=== PATIENT | female | born 1995 | race Caucasian/White ===

== ENCOUNTER 2020-12-27 15:18 | Emergency (ER) | payer OTHER, SELFPAY ==
--- NOTE | ~2020-12-27 | XR_ITS ---
EXAMINATION: XR foot RT min 3V DATE: 12/27/2020 15:40 INDICATION: Right foot pain TECHNIQUE: Dorsoplantar, lateral, and 2 oblique views of the right foot were obtained. COMPARISON: 10/25/2014 FINDINGS: There is a healed fracture of the fifth metatarsal. No acute fracture, dislocation, or subl uxation is identified. The joint spaces are normal. The soft tissues are unremarkable. IMPRESSION: 1. No acute osseous abnormality. Reviewed, dictated and finalized at location A.
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
[2020-12-27 15:41] VITALS: BP 99/70; PULSE 72; RESP 16; TEMP 36.2; O2SAT 100
== END 2020-12-27 16:03 | disposition home or self-care (01) ==
PROVIDERS: Emergency Provider Registered Nurse; PCP Internal Medicine
DX: M79.671 Pain in right foot (principal)
CPT/HCPCS: 73630; 99213; G0463

== ENCOUNTER 2024-03-02 10:09 | Emergency (ER) | payer OTHER, SELFPAY ==
--- NOTE | ~2024-03-02 | CT_ITS ---
CT brain wo con Ordering provider: Raffaele Callahan MD History: 28 years Female with . head injury . Comparison: None. Technique: CT of the head without contrast. Radiation reduction technique utilized.The dose-length product was 908 mGy-cm. FINDINGS: BRAIN PARENCHYMA AND CSF SPACES: No midline shift, mass effect or hemorrhage. The brain parenchyma a nd CSF spaces are otherwise normal. VISUALIZED PARANASAL SINUSES: Well aerated. MASTOIDS: Well aerated. BONES: The bones appear intact. SOFT TISSUES: Visualized nasopharynx is normal. Superficial soft tissues are normal. IMPRESSION: No acute intracranial findings. Reviewed, dictated and finalized at location A. N FACTORS ERGONOMIST
[2024-03-02 10:28] VITALS: BP 117/58; PULSE 94; RESP 18; TEMP 36.8; O2SAT 98
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
[2024-03-02 13:07] VITALS: BP 115/76; PULSE 70; RESP 18; O2SAT 99
== END 2024-03-02 13:07 ==
PROVIDERS: Emergency Provider Emergency Medicine; PCP Internal Medicine
DX: S09.90XA Unspecified injury of head, initial encounter (principal); G80.9 Cerebral palsy, unspecified; F31.9 Bipolar disorder, unspecified; Z79.899 Other long term (current) drug therapy; W22.8XXA Striking against or struck by other objects, initial encounter
CPT/HCPCS: 70450; 99284

== ENCOUNTER 2024-09-29 11:24 | Emergency (ER) | payer OTHER, SELFPAY ==
--- NOTE | 2024-09-29 11:25 | ED.EAR ---
HPI - Ear Problem General Chief complaint: Ear Stated complaint: Ear Pain Source: patient and RN notes reviewed Mode of arrival: ambulatory Limitations: no limitations History of Present Illness HPI Narrative: Patient is a 29-year-old female who presents to the [facility] with mother with complaints of right ear pain. Mother states that patient's ears frequently get clogged with wax. She states that she noticed that there was a large amount of wax to bilateral ears. Mother denies noting any ear drainage. Denies recent fevers. Related Data Home Medications ?Medication ?Instructions ?Recorded ?Confirmed ?Last Taken ?Type aripiprazole 10 mg tablet 10 mg PO DAILY 06/16/19 07/23/24 Unknown History acetaminophen 325 mg capsule 325 mg PO Q6H PRN 06/16/23 07/23/24 Unknown History divalproex 500 mg tablet,delayed 500 mg PO Q12H 06/16/23 07/23/24 Unknown History release fluoxetine 40 mg capsule 40 mg PO DAILY 06/16/23 07/23/24 Unknown History ibuprofen 200 mg capsule 600 mg PO Q6H PRN 06/16/23 07/23/24 Unknown History magnesium hydroxide 400 mg/5 mL 5 ml PO DAILY PRN 06/16/23 07/23/24 Unknown History oral suspension (Milk of Magnesia) nystatin 100,000 unit/gram topical 1 applic topical BID 06/16/23 07/23/24 Unknown History cream trazodone 50 mg tablet 50 mg PO QHS 06/16/23 07/23/24 Unknown History aripiprazole 2 mg tablet (Abilify) 5 mg PO DAILY 05/28/24 07/23/24 Unknown History Allergies Allergy/AdvReac Type Severity Reaction Status Date / Time No Known Allergies Allergy Verified 09/29/24 11:49 Review of Systems Review of Systems: CONSTITUTIONAL: Denies fever, chills, or sweats. EYES: Denies visual changes, redness, or discharge. ENT: Reports otalgia CARDIOVASCULAR: Denies chest pain, palpitations, or edema. RESPIRATORY: Denies cough or dyspnea. GASTROINTESTINAL: Denies abdominal pain, nausea, vomiting, or diarrhea. GENITOURINARY: Denies dysuria or hematuria. SKIN: Denies rash or itching. MUSCULOSKELETAL: Denies back pain, joint pain, or myalgia. NEUROLOGIC: Denies headache, numbness, or weakness. Pertinent positives per HPI. PMFSH Past Medical History Medical History History of bipolar disorder Cerebral palsy Surgical History Surgical History Lower extremity surgery planned BL leg 07/2015 Family History Family History Mother Hypothyroidism Grandparent Bipolar disorder Schizophrenia Hypothyroidism Diabetes mellitus Social History Social History Smoking status: Never smoker Alcohol intake: never Lack of Transportation: No Lack of Food: Never True Current Housing: I Have Housing Concerned About Future Housing: No Difficulty Paying Gas/Electric Bills: No Difficulty Paying for Meds: No Currently Unemployed: No Education: High School Diploma/GED Living arrangements: custodial Occupation/Education: other Gender identity (if verbalized by the patient): Female Comments At the time of my signature, I reviewed and agree with the nursing past medical, surgical, social, and family history. There is no relevant family history pertinent to the patient complaint. Exam Narrative: GENERAL: This is a well-nourished, well-developed patient, in no apparent distress. HEAD: normocephalic, atraumatic. EYES: Sclera clear/white. Vision is grossly intact. EARS: External ears normal. Bilateral ears with cerumen impaction. After irrigation, bilateral TMs erythematous and bulging. NOSE: External nose normal with no obvious nasal discharge, nares without redness, no rhinorrhea. THROAT: Mucous membranes moist, posterior pharynx clear. NECK: Neck supple, non-tender without lymphadenopathy, masses or thyromegaly. CARDIOVASCULAR: Regular rate and rhythm without murmurs, gallops, or rubs. RESPIRATORY: Clear to auscultation. Breath sounds equal bilaterally. No wheezes, rales, or rhonchi. GASTROINTESTINAL: Abdomen soft, non-tender, nondistended. Bowel sounds are active. No hepato-splenomegaly, or palpable masses. No guarding. SKIN: warm, intact with no suspicious lesions or rash, good texture and turgor. NEURO: awake, alert. There were no obvious focal neurologic abnormalities. Course Course Level of Care: Express Care Visit Vital Signs Vital signs: Vital Signs Temperature 97.6 F 09/29/24 11:28 Pulse Rate 88 09/29/24 11:28 Respiratory Rate 16 09/29/24 11:28 Blood Pressure 112/78 09/29/24 11:28 Pulse Oximetry 98 09/29/24 11:28 Oxygen Delivery Room Air 09/29/24 11:28 Temperature 97.6 F 09/29/24 11:28 Pulse Rate 88 09/29/24 11:28 Respiratory Rate 16 09/29/24 11:28 Blood Pressure 112/78 09/29/24 11:28 Pulse Oximetry 98 09/29/24 11:28 Oxygen Delivery Room Air 09/29/24 11:28 Reviewed Procedures Ear Wax Removal Both Ears: Ear Wax Removal Date: 09/29/24 Ear Wax Removal Time: 11:45 Results: Re-examined: cerumen removed completely TM Examination: TM(s) erythematous Ear Canal Exam: atraumatic Patient Tolerated Procedure: well Complications: no problems Technique: ear canal irrigated and ear canal curetted Medical Decision Making MDM Narrative Medical decision making narrative: Take antibiotics as directed. May given ibuprofen and/or Tylenol as needed for pain and/or fever. Follow up with primary care provider in 7-10 days to have ear rechecked. -Ear drops as directed for 7-10 days until the pain and swelling are gone. -When administer drug into the affected ear; make sure to ly down with the affected ear facing upward, message the ear canal to help the drops reach the medial end of the canal, then remain in that position for at least 5 mintues. -Avoid using cotton tipped applicator for ears cleaning -Avoid exposing swimming or exposing the affected ear to water during the treatment period Take or alternate tylenol or ibuprofen every 4 - 6 hours if needed for pain. Follow up with primary care provider if condition is not improving in 7 days or sooner if there is new concern. Dual therapy with oral antibiotics and ear drops prescribed. Patient with significant otitis media. Since we had to irrigate can now due to cerumen impaction, we will also treat with ear drops. Differential Diagnosis Differential Diagnosis: otitis media, otitis externa, cerumen impaction Vital Signs Vital Signs: Vital Signs Temperature 97.6 F 09/29/24 11:28 Pulse Rate 88 09/29/24 11:28 Respiratory Rate 16 09/29/24 11:28 Blood Pressure 112/78 09/29/24 11:28 Pulse Oximetry 98 09/29/24 11:28 Oxygen Delivery Room Air 09/29/24 11:28 Temperature 97.6 F 09/29/24 11:28 Pulse Rate 88 09/29/24 11:28 Respiratory Rate 16 09/29/24 11:28 Blood Pressure 112/78 09/29/24 11:28 Pulse Oximetry 98 09/29/24 11:28 Oxygen Delivery Room Air 09/29/24 11:28 Critical Care Time Critical Care Time Critical Care Time: No Discharge Plan Discharge Clinical Impression: Bilateral acute otitis media, Bilateral impacted cerumen Patient Disposition: Home Condition: Stable Instructions: Antibiotic Form, Ear Infection (ED) Additional Instructions: Take antibiotics as directed. May given ibuprofen and/or Tylenol as needed for pain and/or fever. Follow up with primary care provider in 7-10 days to have ear rechecked. -Ear drops as directed for 7-10 days until the pain and swelling are gone. -When administer drug into the affected ear; make sure to ly down with the affected ear facing upward, message the ear canal to help the drops reach the medial end of the canal, then remain in that position for at least 5 mintues. -Avoid using cotton tipped applicator for ears cleaning -Avoid exposing swimming or exposing the affected ear to water during the treatment period Take or alternate tylenol or ibuprofen every 4 - 6 hours if needed for pain. Follow up with primary care provider if condition is not improving in 7 days or sooner if there is new concern. Patient Language: Icelandic Prescriptions: New amoxicillin-pot clavulanate 875-125 mg tablet 1 tablet PO Q12H 10 Days Qty: 20 0RF ofloxacin 0.3 % drops 10 drp EACH EAR DAILY 7 Days Qty: 10 0RF No Action aripiprazole 10 mg tablet 10 mg PO DAILY aripiprazole [Abilify] 2 mg tablet 5 mg PO DAILY Rx Instructions: TAKE AT NOON divalproex 500 mg tablet,delayed release (DR/EC) 500 mg PO Q12H fluoxetine 40 mg capsule 40 mg PO DAILY nystatin 100,000 unit/gram cream 1 applic topical BID trazodone 50 mg tablet 50 mg PO QHS acetaminophen 325 mg capsule 325 mg PO Q6H PRN ibuprofen 200 mg capsule 600 mg PO Q6H PRN magnesium hydroxide [Milk of Magnesia] 400 mg/5 mL suspension 5 ml PO DAILY PRN Follow-up/Referrals: UNKNOWN,DOCTOR [Non-Staff] -
[2024-09-29 11:28] VITALS: BP 112/78; PULSE 88; RESP 16; TEMP 36.4; O2SAT 98
== END 2024-09-29 11:57 | disposition home or self-care (01) ==
PROVIDERS: Emergency Provider Nurse Practitioner
DX: H66.93 Otitis media, unspecified, bilateral (principal); H61.23 Impacted cerumen, bilateral; G80.9 Cerebral palsy, unspecified; F31.9 Bipolar disorder, unspecified
CPT/HCPCS: 69210; 99213; A9270; G0463

== ENCOUNTER 2024-11-24 12:40 | Outpatient (CLI) | payer OTHER, SELFPAY ==
--- NOTE | ~2024-11-24 | US_ITS ---
US breast BI complete 11/24/2024 13:27 Indication: Bilateral breast pain Procedure: High-resolution complete bilateral breast ultrasound including all 4 quadrants in the suba reolar locations Comparison: No prior studies for comparison. Findings: At 12:00, 3 cm from the nipple there is a cluster of microcysts measuring up to 8 mm in agg regate. At 8:00, 6 cm from the nipple there is a 6 mm cyst. Left breast: At 3:00, 7 cm from the nipple there is an 8 mm cyst. No suspicious masses in either raf st to suggest malignancy. Impression: 1: No sonographic evidence for malignancy. Benign bilateral breast cysts. BI-RADS CATEGORY 2 - BENIGN FINDINGS Reviewed, dictated and finalized at location A. Impression: 1: No sonographic evidence for malignancy. Benign bilateral breast cysts. BI-RADS CATEGORY 2 - BENIGN FINDINGS
--- OUTSIDE RECORDS SUMMARY | 2024-11-24 12:42 | XMS_ITS | Clinical Summary ---
Author Organization [facility] Address [address] [facility] [place] [address] Phone Care Team Providers Care Filenet P8 Developer Name Role Phone Unavailable Primary Care Provider Unavailabl e Social History Tobacco Use Types Packs/Day Years Used Date Smoking Tobacco: Never Assessed Comments Unknown Sex and Gender Information Value Date Recorded Sex Assigned at Not on file Legal Sex Female 11:11 PM CDT Gender Identity Not on file Sexual Orientation Not on file Plan of Treatment Health Maintenance Due Date Last Done Comments Hepatitis C Virus (HCV) Screening 1995 Human Papillomavirus (HPV) Immunization (1 - 3-dose SCDM series) 2022 SARS-COV-2 Immunization ( - season) 2023 12/16/2020, 11/25/2020 Influenza Immunization (#1) 2024 04/02/2021 Respiratory Syncytial Virus (RSV) Immunization (Adult) (1 - 1-dose 75+ series) 2070 Hepatitis B Immunization Completed 996, 1995, 1995 DTaP/Tdap/Td Immunization Discontinued 2010, 11/25/2000, 07/22/1996, Additional history exists TdaP Immunization Completed 12/05/2010 Meningococcal Immunization (ACWY) Completed 04/27/2013, 12/05/2010 Pneumococcal Immunization Combined Aged Out No longer eligible based on patient's age to complete this topic Rotavirus Immunization Aged Out No lo nger eligible based on patient's age to complete this topic
--- OUTSIDE RECORDS SUMMARY | 2024-11-24 12:42 | XMS_ITS | Clinical Summary ---
Author Organization [facility] Address [facility] [place] [address] Care Team Providers Care Blasting Cap Assembler Name Role Phone Juan Mendez DO Primary Care Provider [phone] Allergies No known active allergies Medications FLUoxetine 40 MG capsule Take 40 mg by mouth daily. Active OLANZapine 5 MG tablet Take 5 mg by mouth nightly at bedtime. Active traZODone 50 MG tablet Take 50 mg by mouth nightly at bedtime. Active Social History Tobacco Use Types Packs/Day Years Used Date Smoking Tobacco: Never Smokeless Tobacco: Never Tobacco Cessation:Counseling Given: Not Answered Alcohol Use Standard Drinks/Week Comments Never 0 (1 standard drink = 0.6 oz pur e alcohol) Comments No Sex and Gender Information Value Date Recorded Sex Assigned at Not on file Legal Sex Female 7:39 PM CDT Gender Identity Not on file Sexual Orientation Not on file Last Filed Vital Signs Vital Sign Reading Time Taken Comments Blood Pressure 125/71 03/03/2023 7:20 PM CIRCUIT BREAKER ASSEMBLER Pulse 88 03/03/2023 7:20 PM CIRCUIT BREAKER ASSEMBLER Temperature 36.8 C (98.2 F) 03/03/2023 4:25 PM CIRCUIT BREAKER ASSEMBLER Respiratory Rate 15 03/03/2023 7:20 PM CIRCUIT BREAKER ASSEMBLER Oxygen Saturation 98% 03/03/2023 7:20 PM CIRCUIT BREAKER ASSEMBLER Inhaled Oxygen Concentration - - Weight 75 kg (165 lb 5.5 oz) 03/03/2023 4:24 PM CIRCUIT BREAKER ASSEMBLER Height 170.2 cm (5' 7) 03/03/2023 4:24 PM CIRCUIT BREAKER ASSEMBLER Body Mass Index 25.9 03/03/2023 4:24 PM CIRCUIT BREAKER ASSEMBLER Plan of Treatment Health Maintenance Due Date Last Done Comments Cervical Cancer Screening Pap Smear (Age 21 to 29) Every 3 Years 1995 Cervical Cancer Screening 1995 Annual Physical 1998 Hepatitis C 2013 DTaP, Tdap and Td Vaccines (7 - Td or Tdap) 12/05/2020 12/05/2010, 11/25/2000, 07/22/1996, Additional history exists HPV Vaccines (1 - 3-dose SCDM series) 2022 COVID-19 Vaccine ( season) 2023 12/16/2020, 11/25/2020 Hepatitis B Vaccines Completed 1995, 1995, 1995 Meningococcal Vaccine Completed 04/27/2013, 011 Meningococcal B Vaccine Aged Out No l onger eligible based on patient's age to complete this topic Pneumococcal Vaccine: Pediatrics (0 to 5 Years) and At-Risk Patients (6 to 49 Years) Aged Out No longer eligible based on patient's age to complete this topic RSV Immunizations Under 20 Months Aged Out No longer eligible based on patient's age to complete this topic Insurance Care Teams Blasting Cap Assembler Relationship Specialty Start Date End Date Juan Mendez DO [address] [place] [address] PCP - General INTERNAL MEDICINE 05/27/21
== END 2024-11-24 12:41 | disposition home or self-care (01) ==
LOC: ANHIMG 12:41
PROVIDERS: PCP Internal Medicine; Visit Provider Nurse Practitioner
DX: N63.0 Unspecified lump in unspecified breast (principal)
CPT/HCPCS: 76641

== ENCOUNTER 2025-02-24 16:04 | Emergency (ER) | payer OTHER, SELFPAY ==
--- NOTE | ~2025-02-24 | XR_ITS ---
EXAMINATION: XR hand LT min 3V, 02/24/2025 16:55 LEAK PATCHER HISTORY: left hand pain, injury COMPARISON: No comparisons available. Findings: Slightly displaced oblique fracture of the mid fourth metacarpal. No significant degenerative changes. Soft tissues unremarkable. Impression: Fourth metacarpal fracture Reviewed, dictated and finalized at location . PATCHER Impression: Fourth metacarpal fracture
--- OUTSIDE RECORDS SUMMARY | 2025-02-24 16:06 | XMS_ITS | Clinical Summary ---
Author Organization 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 Gender Identity Not on file Sexual Orientation Not on file Plan of Treatment Health Maintenance Due Date Last Done Comments Cervical Cancer Screening 1995 Depression Screening 1995 Hepatitis C Screening 1995 Regular Well Visit/Exam 18-64 2013 DTaP/Tdap/Td Vaccine (7 - Td or Tdap) 12/05/2020 12/05/2010, 11/25/2000, 07/22/1996, Additional history exists HPV Vaccines (1 - 3-dose SCDM series) 2022 Covid-19 Vaccine ( season) 2024 12/16/2020, 11/25/2020 Influenza Vaccine (#1) 2024 04/02/2021 Hepatitis B Screening Completed 1995 , 1995, 1995 Varicella Vaccines Completed 12/05/2010, 08/29/2000 Pneumococcal vaccine <65 Aged Out No longer eligible based on patient's age to complete this topic Insurance [facility] Care Teams Recreation Specialist Relationship Specialty Start Date End Date Juan Mendez DO PCP - General Internal Medicine 02/21/23
--- OUTSIDE RECORDS SUMMARY | 2025-02-24 16:06 | XMS_ITS | Clinical Summary ---
Author Organization [facility] Address [facility] [place] [address] Care Team Providers Care Plasterer Spray Gun Name Role Phone Juan Mendez DO Primary Care Provider [phone] Allergies No known active allergies Medications FLUoxetine [...] Comments Blood Pressure 125/71 03/03/2023 7:20 PM CRUISE DIRECTOR Pulse 88 03/03/2023 7:20 PM CRUISE DIRECTOR Temperature 36.8 C (98.2 F) 03/03/2023 4:25 PM CRUISE DIRECTOR Respiratory Rate 15 03/03/2023 7:20 PM CRUISE DIRECTOR Oxygen Saturation 98% 03/03/2023 7:20 PM CRUISE DIRECTOR Inhaled Oxygen Concentration - - Weight 75 kg (165 lb 5.5 oz) 03/03/2023 4:24 PM CRUISE DIRECTOR Height 170.2 cm (5' 7) 03/03/2023 4:24 PM CRUISE DIRECTOR Body Mass Index 25.9 03/03/2023 4:24 PM CRUISE DIRECTOR Plan of Treatment Health Maintenance Due Date Last Done Comments Cervical Cancer Screening Pap Smear (Age 21 to 29) Every 3 Years 1995 Cervical Cancer Screening 1995 Annual Physical 1998 Hepatitis C 2013 DTaP, Tdap and Td Vaccines (7 - Td or Tdap) 12/05/2020 12/05/2010, 11/25/2000, 07/22/1996, Additional history exists HPV Vaccines (1 - 3-dose SCDM series) 2022 COVID-19 Vaccine ( - season) 2024 12/16/2020, 11/25/2020 Influenza Adult (#1) 2025 04/02/2021 Hepatitis B Vaccines Completed 1995, 1995, 1995 Hepatitis A Vaccines Completed 04/27/2013, 12/06/19 11 Meningococcal Vaccine Completed 04/27/2013, 011 Meningococcal B [...] patient's age to complete this topic Insurance [employer] Care Teams Plasterer Spray Gun Relationship Specialty Start Date End Date Juan Mendez DO [address] [place], [place] [id number] PCP - General INTERNAL MEDICINE 05/27/21
--- OUTSIDE RECORDS SUMMARY | 2025-02-24 16:06 | XMS_ITS | Clinical Summary ---
Author Organization [facility] Address [address] [facility] [place] [address] Phone Care Team Providers Care Restorer Paper And Prints Name Role Phone Unavailable Primary Care Provider [...] Immunization (1 - 3-dose SCDM series) 2022 Influenza Immunization (#1) 2024 04/02/2021 SARS-COV-2 Immunization ( season) 2024 12/16/2020, 11/25/2020 Respiratory Syncytial Virus (RSV) Immunization (Adult) (1 [...]
[2025-02-24 16:10] VITALS: BP 126/80; PULSE 100; RESP 18; TEMP 36.4; O2SAT 97
--- OUTSIDE RECORDS SUMMARY | 2025-02-24 17:04 | XMS_ITS | Clinical Summary ---
Author Organization [facility] Address [address] [facility] [place] [address] Phone Care Team Providers Care Benefits Technician Name Role Phone Unavailable Primary Care Provider [...]
--- OUTSIDE RECORDS SUMMARY | 2025-02-24 17:04 | XMS_ITS | Clinical Summary ---
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
--- OUTSIDE RECORDS SUMMARY | 2025-02-24 17:04 | XMS_ITS | Clinical Summary ---
Author Organization [facility] Address [address] [place] [address] Care Team Providers Care Abrasive Water Jet Cutter Operator Name Role Phone Momo Rasmussen MD Primary Care Provider +1- [phone] Source Comments [facility],non-owned Affiliates and Associated Physician Practices is amultiple site organization consisting of ambulatory clinics and hospital sitesin [place], [place], [place] and [place]. This disclosure is being madepursuant to the Care Everywhere program and may not contain all information available regarding this patient. Last updated 18.[facility] [employer] Allergies No known active allergies Medications * Be aware that medications may not be up to date on this document. Alwaysverify current medications with the patient. ARIPiprazole (ABILIFY) 5 MG tablet Take 1 Tab by mouth once daily. 30 Tab 5 06/02/2014 Active Active Problems No known active problems Immunizations Immunization Administration Dates Next Due DTaP VACCINE IM (6wk-6yrs) 11/25/2000,,1995, 6,1995 HEP A PEDS 2 DOSE 04/27/2013,12/05/2010 HEP B VACCINE, PED/ADOL 1995,1995, HIB-PRP-OMP 3 DOSE 07/22/1996,1995, 996 MENINGOCOCAL MENINGITIS 12/05/2010 MENINGOCOCCAL ACWY (MCV4P) VAC IM 04/27/2013 MMR 08/29/2000,04/22/1996 POLIO IPV 08/29/2000, 7,1995, 6 TDAP (7yrs+) 12/05/2010 VARICELLA 12/05/2010,08/29/2000 Social History Tobacco Use Types Packs/Day Years Used Date Smoking Tobacco: Never Assessed Comments Unknown Sex and Gender Information Value Date Recorded Sex Assigned at Not on file Legal Sex Female 5:36 AM DIRECTOR OF DIVERSITY AND INCLUSION Gender Identity Not on file Sexual Orientation Not on file Last Filed Vital Signs Vital Sign Reading Time Taken Comments Blood Pressure 108/56 06/20/2014 9:24 AM CDT Pulse 88 06/20/2014 9:24 AM CDT Temperature 36.8 C (98.2 F) 06/20/2014 9:24 AM CDT Respiratory Rate - - Oxygen Saturation - - Inhaled Oxygen Concentration - - Weight 59.5 kg (131 lb 3.2 oz) 06/20/2014 9:24 A M CDT Height 168.9 cm (5' 6.5) 06/20/2014 9:24 AM CDT Body Mass Index 20.86 06/20/2014 9:24 AM CDT Plan of Treatment Health Maintenance Due Date Last Done Comments HIV SCREENING 2010 HEPATITIS C SCREENING 04/06/2013 DTAP/TDAP/TD VACCINES (7 - Td or Tdap) 12/05/2020 12/05/2010, 11/25/2000, 07/22/1996, Additional history exists HPV VACCINE (1 - 3-dose SCDM series) 2022 DEPRESSION SCREENING 04/14/2024 COVID-19 VACCINE ( season) 2024 INFLUENZA VACCINE (#1) 2024 ZOSTER VACCINE (1 of 2) 2045 HEPATITIS B VACCINE Completed 1995, 1995, 1995 HIB VACCINE Completed 07/22/1996, 10/1995, 1995 MENINGOCOCCAL GROUPS A/C/Y/W VACCINE Completed 04/27/2013, 12/05/2010 MENINGOCOCCAL (Group B) VACCINE SHARED DECISION-MAKING Aged Out No longer eligible based on patient's age to complete this topic PNEUMOCOCCAL VACCINE Aged Out No long er eligible based on patient's age to complete this topic Insurance MEDICAID - [place] MEDICAID - OUT OF STATE [facility] Care Teams Abrasive Water Jet Cutter Operator Relationship Specialty Start Date End Date Momo Rasmussen MD [address] [place] [id number] PCP - General 06/17/19
--- OUTSIDE RECORDS SUMMARY | 2025-02-24 17:04 | XMS_ITS | Clinical Summary ---
Author Organization [facility] Address [facility] [place] [address] Care Team Providers Care Dental Scheduler Name Role Phone Juan Mendez DO Primary Care Provider [phone] Allergies No known active allergies Medications FLUoxetine [...] Comments Blood Pressure 125/71 03/03/2023 7:20 PM MUTUEL DEPARTMENT MANAGER Pulse 88 03/03/2023 7:20 PM MUTUEL DEPARTMENT MANAGER Temperature 36.8 C (98.2 F) 03/03/2023 4:25 PM MUTUEL DEPARTMENT MANAGER Respiratory Rate 15 03/03/2023 7:20 PM MUTUEL DEPARTMENT MANAGER Oxygen Saturation 98% 03/03/2023 7:20 PM MUTUEL DEPARTMENT MANAGER Inhaled Oxygen Concentration - - Weight 75 kg (165 lb 5.5 oz) 03/03/2023 4:24 PM MUTUEL DEPARTMENT MANAGER Height 170.2 cm (5' 7) 03/03/2023 4:24 PM MUTUEL DEPARTMENT MANAGER Body Mass Index 25.9 03/03/2023 4:24 PM MUTUEL DEPARTMENT MANAGER Plan of Treatment Health Maintenance Due Date [...] patient's age to complete this topic Insurance [employer] Care Teams Dental Scheduler Relationship Specialty Start Date End Date Juan Mendez DO [address] [place], [place] [id number] PCP - General INTERNAL MEDICINE 05/27/21
[2025-02-24] MEDS: HYDROcodone/acetaminophen (*CRX) 5-325 MG TABLET 1 TAB PO (17:33)
--- NOTE | 2025-02-24 17:53 | ED.UPPEXIN ---
HPI - Extremity Injury (Upper) General Chief Complaint: Extremity Injury, Upper Stated Complaint: L land injury Time Seen by Provider: 02/24/25 16:49 Source: patient Mode of arrival: ambulatory Limitations: no limitations History of Present Illness HPI narrative: This is a 29 year old female that presents to the ER for left hand injury. Sustained earlier today. Reports she fell. Noted bruising to the swelling to the area which prompted mom to bring her in for evaluation. Related Data Home Medications ?Medication ?Instructions ?Recorded ?Confirmed ?Last Taken ?Type aripiprazole 10 mg tablet 10 mg PO DAILY 06/16/19 02/09/25 Unknown History divalproex 500 mg tablet,delayed 500 mg PO Q12H 06/16/23 02/09/25 Unknown History release fluoxetine 40 mg capsule 40 mg PO DAILY 06/16/23 02/09/25 Unknown History ibuprofen 200 mg capsule 600 mg PO Q6H PRN 06/16/23 02/09/25 Unknown History trazodone 50 mg tablet 50 mg PO QHS 06/16/23 02/09/25 Unknown History aripiprazole 2 mg tablet (Abilify) 5 mg PO DAILY 05/28/24 02/09/25 Unknown History Allergies Allergy/AdvReac Type Severity Reaction Status Date / Time No Known Allergies Allergy Verified 02/24/25 16:15 Review of Systems Review of Systems: All systems reviewed & are unremarkable except as noted in HPI and below PMFSH Past Medical History Medical History History of bipolar disorder Cerebral palsy Surgical History Surgical History Lower extremity surgery planned BL leg 07/2015 Family History Family History Mother Hypothyroidism Grandparent Bipolar disorder Schizophrenia Hypothyroidism Diabetes mellitus Social History Social History Social History: Caffeine-soda Smoking status: Never smoker Alcohol intake: never Substance use: never Substance use type: does not use Lack of Transportation: No Lack of Food: Never True Current Housing: I Have Housing Concerned About Future Housing: No Difficulty Paying Gas/Electric Bills: No Difficulty Paying for Meds: No Currently Unemployed: No Education: High School Diploma/GED Living arrangements: correction Occupation/Education: other Gender identity (if verbalized by the patient): Female Exam Narrative: GENERAL: Well-appearing, well-nourished, and in no acute distress. HEAD: Normocephalic, atraumatic. EYES: EOMI. EXTREMITIES: Normal range of motion. Edema to the left hand. Tender to palpation of the 4th metacarpal. Normal radial pulse. Normal sensation SKIN: Warm, dry, no rash. NEURO: No focal deficits. Alert and oriented x3. PSYCH: Normal mood and affect Course Vital Signs Vital signs: Vital Signs Temperature 97.5 F L 02/24/25 16:10 Pulse Rate 100 02/24/25 16:10 Respiratory Rate 18 02/24/25 16:10 Blood Pressure 126/80 02/24/25 16:10 Pulse Oximetry 97 02/24/25 16:10 Oxygen Delivery Room Air 02/24/25 16:10 Temperature 97.5 F L 02/24/25 16:10 Pulse Rate 100 02/24/25 16:10 Respiratory Rate 18 02/24/25 16:10 Blood Pressure 126/80 02/24/25 16:10 Pulse Oximetry 97 02/24/25 16:10 Oxygen Delivery Room Air 02/24/25 16:10 MDM - Extremity Injury (Upper) Imaging Data Radiologist's impression: ITS Impressions Hand X-Ray 02/24/25 17:01 Impression: Fourth metacarpal fracture Discharge Plan Discharge Clinical Impression: Fracture of metacarpal Qualifiers: Encounter type: initial encounter Metacarpal bone: fourth Fracture type: closed Metacarpal location: shaft Fracture alignment: displaced Laterality: left Qualified Code(s): S62.325A - Displaced fracture of shaft of fourth metacarpal bone, left hand, initial encounter for closed fracture Patient Disposition: Home Condition: Stable Instructions: Hand Fracture (ED) Additional Instructions: Return to the ER if you experience fever, redness and swelling of your extremity, numbness or any other symptoms that are concerning to you Wear splint. No weight on the affected extremity. Ice and elevate extremity. Tylenol or Ibuprofen as needed for pain. Prescribed pain medication as needed Follow up with hand surgery for further care. Patient Language: Zambian Prescriptions: New hydrocodone-acetaminophen 5-325 mg tablet 1 tablet PO Q6H PRN (Reason: pain) Qty: 20 0RF No Action aripiprazole 10 mg tablet 10 mg PO DAILY aripiprazole [Abilify] 2 mg tablet 5 mg PO DAILY Rx Instructions: TAKE AT NOON divalproex 500 mg tablet,delayed release (DR/EC) 500 mg PO Q12H fluoxetine 40 mg capsule 40 mg PO DAILY trazodone 50 mg tablet 50 mg PO QHS ibuprofen 200 mg capsule 600 mg PO Q6H PRN Follow-up/Referrals: Molly Jensen MD [Physician, Plastic Surgery] Juan Mendez DO [Primary Care Provider, Internal Medicine]
== END 2025-02-24 18:35 | disposition home or self-care (01) ==
PROVIDERS: Emergency Provider Physician Assistant; PCP Internal Medicine
DX: S62.325A Displaced fracture of shaft of fourth metacarpal bone, left hand, initial encounter for closed fracture (principal); W19.XXXA Unspecified fall, initial encounter; G80.9 Cerebral palsy, unspecified
CPT/HCPCS: 29125; 73130; 99284; A4565; A9270

== ENCOUNTER 2025-03-14 12:40 | Outpatient (CLI) | payer OTHER, SELFPAY ==
--- NOTE | ~2025-03-14 | XR_ITS ---
EXAMINATION: XR hand LT min 3V, 03/14/2025 12:55 CARD FIXER HISTORY: S62.325A - Displaced fracture of shaft of fourth metacarp... COMPARISON: No comparisons available. Findings: There is a healing fracture of the proximal fourth metacarpal which is slightly displaced.Minimal callus formation. No significant degenerative changes. Soft tissues unremarkable. Impression: Healing fracture Reviewed, dictated and finalized at location P. FIXER Impression: Healing fracture
--- OUTSIDE RECORDS SUMMARY | 2025-03-14 13:47 | XMS_ITS | Clinical Summary ---
Author Organization [facility] Address [address] [facility] [place] [address] Phone Care Team Providers Care Visual Educator Name Role Phone Unavailable Primary Care Provider [...]
--- OUTSIDE RECORDS SUMMARY | 2025-03-14 13:47 | XMS_ITS | Clinical Summary ---
Author Organization [facility] Address [address] [place] [address] Care Team Providers Care Spool Maker Name Role Phone Momo Rasmussen MD Primary Care Provider +1- [phone] Source Comments [facility],non-owned Affiliates and Associated Physician Practices is amultiple site organization consisting of ambulatory clinics and hospital sitesin [place], [place], [place] and [place]. This disclosure is being madepursuant to the Care Everywhere program and may not contain all information available regarding this patient. 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
--- OUTSIDE RECORDS SUMMARY | 2025-03-14 13:47 | XMS_ITS | Clinical Summary ---
Author Organization [facility] Address [address] [place] [address] Care Team Providers Care Silver Chaser Name Role Phone Juan Mendez DO Primary Care Provider +1- [phone] Social History Tobacco Use Types Packs/Day Years Used Date Smoking Tobacco: Never Assessed Personal Safety Answer Date Recorded Getting School Help Needed Not on file 06/27 Comments Unknown Sex and Gender Information Value Date Recorded Sex Assigned at Not on file Legal Sex Female 12:19 PM SCOUT PROFESSIONAL SPORTS Gender Identity Not on file Sexual Orientation [...] patient's age to complete this topic Insurance [facility] Care Teams Silver Chaser Relationship Specialty Start Date End Date Juan Mendez DO PCP - General Internal Medicine 02/21/23
--- OUTSIDE RECORDS SUMMARY | 2025-03-14 13:47 | XMS_ITS | Clinical Summary ---
Author Organization [facility] Address [facility] [place] [address] Care Team Providers Care Chemical Tank Worker Name Role Phone Juan Mendez DO Primary Care Provider +2 [phone] Allergies No known active allergies Medications FLUoxetine [...] Comments Blood Pressure 125/71 03/03/2023 7:20 PM BUTTON SEWER HAND Pulse 88 03/03/2023 7:20 PM BUTTON SEWER HAND Temperature 36.8 C (98.2 F) 03/03/2023 4:25 PM BUTTON SEWER HAND Respiratory Rate 15 03/03/2023 7:20 PM BUTTON SEWER HAND Oxygen Saturation 98% 03/03/2023 7:20 PM BUTTON SEWER HAND Inhaled Oxygen Concentration - - Weight 75 kg (165 lb 5.5 oz) 03/03/2023 4:24 PM BUTTON SEWER HAND Height 170.2 cm (5' 7) 03/03/2023 4:24 PM BUTTON SEWER HAND Body Mass Index 25.9 03/03/2023 4:24 PM BUTTON SEWER HAND Plan of Treatment Health Maintenance Due Date [...] patient's age to complete this topic Insurance [employer] Care Teams Chemical Tank Worker Relationship Specialty Start Date End Date Juan Mendez DO [address] [place], [place] [id number] PCP - General INTERNAL MEDICINE 05/27/21
== END 2025-03-14 12:41 | disposition home or self-care (01) ==
PROVIDERS: PCP Internal Medicine; Visit Provider Plastic Surgery
DX: S62.325A Displaced fracture of shaft of fourth metacarpal bone, left hand, initial encounter for closed fracture (principal); X58.XXXA Exposure to other specified factors, initial encounter
CPT/HCPCS: 73130

== ENCOUNTER 2025-03-28 16:01 | Emergency (ER) | payer OTHER, SELFPAY ==
[2025-03-28 16:21] VITALS: BP 114/79; PULSE 97; RESP 18; TEMP 36.4; O2SAT 98
--- NOTE | 2025-03-28 17:09 | ECG_ITS ---
Test Date: 2025-03-28 17:19:03 Measurements Intervals [place] Rate: 74 P: 32 DC: 106 QRS: 89 QRSD: 84 T: 46 QT: 367 QTc: 408 Interpretive Statements SINUS RHYTHM WITH SHORT DC INTERVAL POSSIBLE RIGHT VENTRICULAR CONDUCTION DELAY BASELINE ARTIFACT- I, II, III, AVR, AVF BORDERLINE ECG No previous ECG available for comparison Electronically Signed On 03-28-2025 19:53:02 HAT BLOCKER by Berny Esquivel D.O.
--- NOTE | 2025-03-28 17:25 | ED.CHESTPAIN ---
HPI - Chest Pain General Chief Complaint: Extremity Problem,Nontraumatic Stated Complaint: Chest/Leg Pain Time Seen by Provider: 03/28/25 16:58 Source: patient, family (mother) and RN notes reviewed Mode of arrival: ambulatory Limitations: no limitations History of Present Illness HPI narrative: Mother presents 29-year-old female patient with history of cerebral palsy complaining of lateral ankle pain No OTC treatment prior to arrival. Patient has history of 3 fractures in her right foot and has an internal rotation of her ankle at baseline when she walks. Patient denies any recent injury of the ankle or foot. Denies numbness or tingling. She is also complaining of intermittent left-sided chest discomfort that started today. No additional associated symptoms to include dizziness or lightheadedness, shortness of breath, abdominal pain, nausea or vomiting, recent illness, radiation of the pain. Related Data Home Medications ?Medication ?Instructions ?Recorded ?Confirmed ?Last Taken ?Type aripiprazole 10 mg tablet 10 mg PO DAILY 06/16/19 03/28/25 Unknown History divalproex 500 mg tablet,delayed 500 mg PO Q12H 06/16/23 03/28/25 Unknown History release fluoxetine 40 mg capsule 40 mg PO DAILY 06/16/23 03/28/25 Unknown History ibuprofen 200 mg capsule 600 mg PO Q6H PRN unknown 06/16/23 03/28/25 Unknown History trazodone 50 mg tablet 50 mg PO QHS 06/16/23 03/28/25 Unknown History aripiprazole 2 mg tablet (Abilify) 5 mg PO DAILY 05/28/24 03/28/25 Unknown History Allergies Allergy/AdvReac Type Severity Reaction Status Date / Time No Known Allergies Allergy Verified 03/28/25 16:21 [facility] Past Medical History Medical History History of bipolar disorder Cerebral palsy Surgical History Surgical History Lower extremity surgery planned BL leg 07/2015 Family History Family History Mother Hypothyroidism Grandparent Bipolar disorder Schizophrenia Hypothyroidism Diabetes mellitus Social History Social History Social History: Caffeine-soda Smoking status: Never smoker Alcohol intake: never Substance use: never Substance use type: does not use Lack of Transportation: No Lack of Food: Never True Current Housing: I Have Housing Concerned About Future Housing: No Difficulty Paying Gas/Electric Bills: No Difficulty Paying for Meds: No Currently Unemployed: No Education: High School Diploma/GED Living arrangements: fpc Occupation/Education: other Gender identity (if verbalized by the patient): Female Comments At time of signature, I have reviewed and agree with nursing past medical, surgical, social and family history unless otherwise noted. Please see nursing chart for further information. There is no relevant family history pertinent to the presenting complaint Exam Narrative: GENERAL: Well-appearing, well-nourished, and in no acute distress. Joking and interactive. HEAD: Normocephalic, atraumatic. EYES: EOMI. No redness or drainage. Conjunctivae normal. ENT: Mucous membranes pink and moist. NECK: Normal AROM. Supple. No lymphadenopathy. CHEST: No respiratory distress. Clear to auscultation. Reproducible chest tenderness to the left sternal border. HEART: Regular rate and rhythm. No murmur appreciated. Normal peripheral pulses. MUSCULOSKELETAL: No bony tenderness. EXTREMITIES: Left hand in a cast due to previous fracture. Right thigh, knee, calf her nontender without abnormalities. Right lateral ankle has some slight localized edema and tenderness just anterior to the lateral malleolus. Distal sensation intact. Capillary refill normal. Pedal pulse normal. Full range of motion of the ankle. Foot normal. SKIN: Warm, dry, no rash. Capillary refill normal. Normal skin turgor. NEURO: No focal deficits. Alert and oriented x3. Gait a bit unsteady, but baseline for patient PSYCH: Normal affect. No signs of depression or anxiety. Course Course Level of Care: Express Care Visit Vital Signs Vital signs: Vital Signs Temperature 97.5 F L 03/28/25 16:21 Pulse Rate 97 03/28/25 16:21 Respiratory Rate 18 03/28/25 16:21 Blood Pressure 114/79 03/28/25 16:21 Pulse Oximetry 98 03/28/25 16:21 Temperature 97.5 F L 03/28/25 16:21 Pulse Rate 97 03/28/25 16:21 Respiratory Rate 18 03/28/25 16:21 Blood Pressure 114/79 03/28/25 16:21 Pulse Oximetry 98 03/28/25 16:21 Reviewed MDM MDM Narrative Medical decision making narrative: Mother presents 29-year-old female patient with history of cerebral palsy complaining of lateral ankle pain No OTC treatment prior to arrival. Patient has history of 3 fractures in her right foot and has an internal rotation of her ankle at baseline when she walks. Patient denies any recent injury of the ankle or foot. Denies numbness or tingling. She is also complaining of intermittent left-sided chest discomfort that started today. No additional associated symptoms to include dizziness or lightheadedness, shortness of breath, abdominal pain, nausea or vomiting, recent illness, radiation of the pain. Upon exam, reproducible chest discomfort at the left sternal border. During exam, patient states pain was present for a few seconds but resolved quickly and never returned.Right lateral ankle has some slight localized edema and tenderness just anterior to the lateral malleolus. Neurovascularly intact. Mother states she will make a podiatry appointment for patient to have her ankle checked. Chest discomfort is likely musculoskeletal in etiology. EKG: Sinus rhythm. Heart rate 74. Recommend NSAID to see if this will help resolve symptoms. Differential Diagnosis Differential Diagnosis: Ankle sprain contusion, fracture. Costochondritis, pleurisy, arrhythmia. ECG Data EKG #1: Attestation: I personally reviewed and interpreted this ECG as follows: ECG completion date: 03/28/25 ECG completion time: 17:19 Prior ECG tracings: not available for review Interpretation: Sinus rhythm with short VA interval. Possible right ventricular conduction delay. Heart rate 74. VA interval 106 Critical Care Time Critical Care Time Critical Care Time: No Discharge Plan Discharge Clinical Impression: Intermittent chest pain Ankle pain, right Qualifiers: Chronicity: acute Qualified Code(s): M25.571 - Pain in right ankle and joints of right foot Patient Disposition: Home Condition: Stable Additional Instructions: Please follow-up with your engineering administrator regarding or ankle discomfort. Please taking anti-inflammatory to see if this will help with your ankle in chest. Follow-up with your PCP if the intermittent chest discomfort persists. Go to the ER immediately if you develop any additional symptoms to include shortness of breath, dizziness or lightheadedness. Patient Language: Setswana Prescriptions: No Action aripiprazole 10 mg tablet 10 mg PO DAILY aripiprazole [Abilify] 2 mg tablet 5 mg PO DAILY Rx Instructions: TAKE AT NOON hydrocodone-acetaminophen 5-325 mg tablet 1 tablet PO Q6H PRN (Reason: pain) Qty: 20 0RF divalproex 500 mg tablet,delayed release (DR/EC) 500 mg PO Q12H fluoxetine 40 mg capsule 40 mg PO DAILY trazodone 50 mg tablet 50 mg PO QHS ibuprofen 200 mg capsule 600 mg PO Q6H PRN (Reason: unknown) Follow-up/Referrals: Juan Mendez DO [Primary Care Provider, Internal Medicine] Time of Disposition: 17:33
== END 2025-03-28 17:35 | disposition home or self-care (01) ==
PROVIDERS: Emergency Provider Nurse Practitioner; PCP Internal Medicine
DX: R07.9 Chest pain, unspecified (principal); M25.571 Pain in right ankle and joints of right foot; G80.9 Cerebral palsy, unspecified
CPT/HCPCS: 93005; 99213; G0463